=== PATIENT | female | born 1955 | race Caucasian/White ===

== ENCOUNTER → 2016-06-22 | Outpatient (CLI) | payer BC ==
[~2016-06-22] MED LIST: ASPI-558 PO; ATEN-36 PO; DICL75TA5 PO; ESTR2TAB23 PO; IBUP-1324 PO; LEVO75TA10 PO
== END ==
LOC: WC.BC 08:24
DX: Z12.31 Encounter for screening mammogram for malignant neoplasm of breast (principal)
CPT/HCPCS: 77063; G0202